=== PATIENT | female | born 1980 | race Two or more races ===

== ENCOUNTER 2025-01-14 16:23 | Emergency (ER) | payer MEDICAID, SELFPAY ==
[2025-01-14 16:25] VITALS: PULSE 83; RESP 18; O2SAT 98; BMI 27.4
--- NOTE | 2025-01-14 16:45 | PD.EDSYNC ---
ED Syncope RME/HPI General Chief Complaint: Syncope / Near Syncope Stated Complaint: SYNCOPE Time Seen by Provider: 01/14/25 16:45 Arrival date/time: 01/14/25 16:23 RME / HPI RME / HPI narrative: 44-year-old female patient was brought in by EMS for evaluation regarding mild heat exhaustion. Patient's been walking understand for the last 2 hours, call law enforcement and was found to be diaphoretic, and dizzy. Patient sat at the back of the police car, when the EMS arrived. Patient denies any headache denies any vomiting denies any other complaints. Related Data Allergies Allergy/AdvReac Type Severity Reaction Status Date / Time CODEINE AdvReac Severe Hives Uncoded 01/14/25 16:33 Review of Systems Review of Systems Narrative Review of Systems: Review of system reviewed and within normal limits except mentioned in HPI ED Exam Narrative Physical exam: VITAL SIGNS: Reviewed. GENERAL APPEARANCE: Alert and interactive, follows commands, no acute distress, HEAD AND FACE: Non-traumatic. ENT: PERRL, pink conjunctivitis, eyelid no trauma, Mucous membrane moist. NECK: Supple, nontender, no nuchal rigidity. CHEST: No tenderness, no crepitus, no paradoxical movement, no retractions. LUNGS: Clear, well ventilated, symmetric, no rales, no wheezing, no ronchi, no stridor, good breath sounds bilaterally. HEART: Regular rate, regular rhythm, no murmur, no gallops. ABDOMEN: Soft, positive bowel sounds, nondistended, no guarding, nontender, no rebound, no masses, RECTAL: Deferred. GENITAL: Deferred. NEUROLOGICAL: Gross motor function intact sensory function intact, Appropriate for age. MUSCULOSKELETAL: low back nontender, full range of motion. EXTREMITIES: Nontender, full range of motion. SKIN: Color pink, dry, no rash, no lacerations, no abrasions, no contusions. LYMPHATICS: Deferred. Course Quality Measures none Syncope MDM Narrative MDM Narrative:: 44-year-old female patient was brought in by EMS for evaluation regarding mild heat exhaustion. Patient's been walking understand for the last 2 hours, call law enforcement and was found to be diaphoretic, and dizzy. Patient sat at the back of the police car, when the EMS arrived. Patient denies any headache denies any vomiting denies any other complaints. Imaging or workup is noted at this time. Patient refused IV fluids. Patient is just asking for jug of ice water and sandwich. Patient is tolerating well. No vomiting. Patient vitals are normal. Patient will be discharged home. Patient data External records reviewed:: None Clinical information provided by:: patient Social determinants that could affect healthcare access:: none Patient has the following chronic illnesses:: None How is presenting disease/condition affected by chronic disease/condition?: no chronic disease Evaluation data The following diagnostics were reviewed and interpreted by me:: other (specify) Lab and/or radiology exams considered but not ordered:: None Interpretation Summary: None Medications / Prescriptions Medications or Prescriptions considered but not ordered:: None Medication administrations:: None Consultations Consultation(s) initiated? (list below): No Diagnosis Syncope Differential Diagnosis: vasovagal syncope Most likely diagnosis given after review of the tests above:: None Admission Indicated Admission indicated?: not indicated Admission Request Was there a request for admission?: No Disposition Plan Disposition Plan: Discharge Discharge Attestation Discharge Attestation: The patient WAS given an opportunity to ask questions and understood the discharge instructions. Discharge instructions specifically effects, indications for sooner follow up or return to the emergency department, and the expected course of current diagnosis. Patient condition: Stable Discharge Plan Plan Patient Disposition: HOME (Self Care) Discharge Disposition comment: Stable Problem List Clinical Impression: Dehydration Patient/Caregiver Discharge Instructions Discharge Activity: activity as tolerated Education Materials: Dehydration Additional Instructions: Thank you for the opportunity for serving you today. You are stable for discharged . You are advised to: Follow-up with your PCP in 1 to 2 days Return to ED for worsening of symptoms Increase oral fluids Print Language: Cape Verdean Stand Alone Forms: [employer] Award Info., Patient Portal Info Letter MAURICIO/ROSHNI Supervising Physician ILLO Supervising Physician: mD Eunice
[2025-01-14 17:06] VITALS: BP 129/88; PULSE 86; RESP 16; TEMP 37.2; O2SAT 96
== END 2025-01-14 19:05 | disposition home or self-care (01) ==
PROVIDERS: Emergency Provider Emergency Medicine
DX: E86.0 Dehydration (principal)
CPT/HCPCS: 99281

== ENCOUNTER 2025-01-18 17:37 | Emergency (ER) | payer MEDICAID, SELFPAY ==
[2025-01-18 17:47] VITALS: BP 91/62; PULSE 88; RESP 18; TEMP 36.6; O2SAT 98; BMI 27.4
--- NOTE | 2025-01-18 18:37 | XR_ITS ---
Examination: Abdomen sonogram, Limited Date and time of exam: January 18, 2025 1708 hours INDICATIONS: Right lower abdominal pain and nausea beginning 2 weeks ago Technique: Real-time ramos scale transabdominal sonographic images of the upper abdomen obtained. Findings: Normal gallbladder Normal common bile duct 0.4 cm Pancreatic head 1.9 cm Hepatomegaly 17.6 cm fatty infiltration Normal hepatopedal portal venous flow Patent IVC IMPRESSION: Normal gallbladder Moderate hepatomegaly fatty infiltration throughout the liver
--- NOTE | 2025-01-18 18:37 | XR_ITS ---
Examination: CT abdomen with intravenous contrast CT pelvis with intravenous contrast 2-D coronal reconstructions 2-D sagittal reconstructions Date and time of exam:January 18, 20252038 hours INDICATIONS: Patient fell today with injury to the abdomen, abdominal pain and vomiting. CTDI: vol (mGy) 9.49 DLP: (mGycm) 517 Technique: Multiple axial sections of the abdomen and pelvis have been obtained. 64 slice high-resolution scanner used. 3 mm axial sections have been obtained, post intravenous injection of Isovue 370. 2-D sagittal, coronal reconstructions obtained. Low dose protocols were performed. One or more of the following dose reduction techniques were used; automated exposure control, adjustment of the mA and/or KV according to patient size, use of iterative reconstruction technique. Findings: 3 mm pulmonary nodule right middle lobe No focal liver or splenic or renal laceration, no perinephric hematoma No gallstones No pancreatic or adrenal mass Abdominal aorta intact, no free blood in the abdomen Normal appendix Minimally fluid distended small bowel loops No pelvic mass Urinary bladder is intact Advanced disc narrowing L5-S1 Lumbar vertebral bodies hips bones of the pelvis is intact Suspicious for 3.4 cm posterior pelvic cyst Impression: 3 mm pulmonary nodule right middle lobe, recommend PA lateral chest follow-up No abdominal parenchymal laceration Normal appendix Mild small bowel ileus Abdominal aorta intact, no free blood in the abdomen or pelvis. Recommend pelvic sonography to confirm 3 cm posterior pelvic cyst
--- NOTE | 2025-01-18 18:39 | EDRME_ITS ---
Rapid Medical Screening Exam [facility] Arrival date/time: 01/18/25 17:37 45F with history of drug/alcohol use presents to ED with 1 week of ab pain and N/V, as well as near syncope. Patient was here several days ago but refused blood draw. But today, she is okay with it. Chief Complaint: Abdominal Pain Vital signs: Vital Signs Temperature 97.9 F 01/18/25 17:47 Pulse Rate 88 01/18/25 17:47 Respiratory Rate 18 01/18/25 17:47 Blood Pressure 91/62 01/18/25 17:47 Pulse Oximetry (%) 98 01/18/25 17:47 Oxygen Delivery Method Room Air 01/18/25 17:47
--- NOTE | 2025-01-18 18:40 | XR_ITS ---
Examination: CT brain head without contrast. 2-D sagittal coronal reconstructions Date and time of exam:January 18, 2025 1703 hours INDICATIONS: Dizziness headache after falling one week ago CTDI: vol (mGy):46.8 DLP: (mGycm):949 Technique: Multiple CT axial sections of the brain have been obtained, 5 mm slice thickness. Contrast has not been administered. 2-D sagittal, coronal reconstructions have been obtained Low dose protocols were performed. One or more of the following dose reduction techniques were used; automated exposure control, adjustment of the mA and/or KV according to patient size, use of iterative reconstruction technique. Findings: No significant ventricular enlargement. Intra-axial or extra-axial hemorrhage density is not seen. No mass effect or midline shift Basal cisterns are not remarkable. Fourth ventricle is midline. Cranial vault intact. Impression: Negative for acute hemorrhage, mass effect or midline shift
--- NOTE | 2025-01-18 18:40 | EKG_ITS ---
[facility] Test Date: 2025-01-18 Pat Name: CHIOMA MOJICA Department: Room: - Gender: Female Signalman: : 1980 Requested By: Ervin Garland Order Number: [id number] Reading MD: Ervin Garland Measurements Intervals [place] Rate: 76 P: 64 AL: 126 QRS: 53 QRSD: 84 T: 45 QT: 348 QTc: 392 Interpretive Statements SINUS RHYTHM MODERATE T-WAVE ABNORMALITY, CONSIDER ANTEROLATERAL ISCHEMIA [-0.1+ mV T-WAVE IN V3-V6] No previous ECG available for comparison /store/S0/[id number]/[id number].pdf
[2025-01-18 19:05] LABS: Basophils # (Auto) 0.0 Thou/mm3 (0.0-0.2); Basophils % (Auto) 0 % (0-2.5); Eosinophils # (Auto) 0.1 Thou/mm3 (0.0-0.5); Eosinophils % (Auto) 1 % (0-10); Hematocrit 44.7 % (36.0-46.0); Hemoglobin 15.1 g/dL (12.0-16.0); Immature Granulocytes Auto 0.03 Thou/mm3 (0.00-0.00); Lactate (Lactic Acid) 1.1 mMol/L (0.4-2.0); Lymphocytes # (Auto) 0.5 Thou/mm3 (1.0-4.8); Lymphocytes % (Auto) 5 % (10-50); Mean Corpuscular HGB Conc 33.8 g/dl (31.0-37.0); Mean Corpuscular Hemoglobin 31.1 pg (25.0-35.0); Mean Corpuscular Volume 92 fL (80-100); Monocytes # (Auto) 0.3 Thou/mm3 (0.0-0.8); Monocytes % (Auto) 3 % (0-12); Neutrophils # (Auto) 9.5 Thou/mm3 (1.8-7.7); Neutrophils % (Auto) 91 % (37-80); Nucleated Red Blood Cell # 0.00 Thou/mm3 (0.00-0.00); Nucleated Red Blood Cell % 0 /100 WBC (0); Platelet Count 178 Thou/mm3 (140-440); RDW Standard Deviation 43.1 fL (36.4-46.3); Red Blood Count 4.85 Miln/mm3 (4.00-5.20); White Blood Count 10.4 Thou/mm3 (3.6-11.0)
[2025-01-18 19:34] LABS: Alanine Aminotransferase 18 U/L (10-49); Albumin, Serum 4.2 gm/dL (3.5-5.0); Albumin/Globulin Ratio 1.6 (1.2-2.2); Alcohol, Blood Medical < 10.0 mg/dL (0-10.0); Alkaline Phosphatase 62 U/L (46-116); Anion Gap 6 (7-16); Aspartate Amino Transferase 23 U/L (0-34); BUN/Creatinine Ratio 13 Ratio (12-20); Bilirubin,Total 1.2 mg/dL (0.3-1.2); Blood Urea Nitrogen 9 mg/dL (9-23); Calcium 8.7 mg/dL (8.3-10.6); Calcium (Corrected) 8.7 mg/dL (8.5-10.1); Carbon Dioxide 23.7 mMol/L (20.0-31.0); Chloride 108 mMol/L (98-107); Creatinine (Component) 0.7 mg/dL (0.6-1.3); Estimated Creatinine Clearance 106.4 mL/min (>60); Globulin 2.6 gm/dL (2.3-3.5); Glucose 111 mg/dL (74-106); Lipase 28 U/L (12-53); Osmolality,Calculated 275 (275-295); Potassium 4.2 mMol/L (3.4-5.1); Sodium 138 mMol/L (136-145); Thyroid Stimulating Hormone 0.49 uIU/mL (0.55-4.78); Total Protein 6.8 gm/dL (5.7-8.2); eGFR > 60 See Note
[2025-01-18] MEDS: RINGERS LACTATED 1000 ML 1,000 ML 999 ML IV (20:07)
[2025-01-18] MEDS: ONDANSETRON INJ 2 MG/ML INJ 2 ML 4 MG IV (20:07)
[2025-01-18 22:37] LABS: Collection Type, Urine Clean Catch; RBC,Urine 0 /hpf (0-3); WBC,Urine 0 /hpf (0-5)
[2025-01-18 22:47] VITALS: BP 112/77; PULSE 95; RESP 18; TEMP 37.6; O2SAT 96
[2025-01-18 22:57] LABS: Bilirubin,Urine Negative (Negative); Blood,Urine Negative (Negative); Clarity,Urine Clear (Clear/Hazy); Color,Urine Lt-Yellow (Lt Yel-Yel); Culture Indicated,Urine Not Indicated; Glucose, Urine Negative (Negative); Ketones,Urine 1+ (Negative); Leukocyte Esterase,Urine Negative (Negative); Nitrite,Urine Negative (Negative); PH,Urine 6.5 (5.0-7.0); Protein,Urine Negative (Neg - Trace); Squamous Epithelial Cell,Urine 8 /hpf (0-5); Urobilinogen,Urine Negative mg/dL (0.0-1.0)
[2025-01-18 22:58] LABS: Specific Gravity,Urine > 1.035 (1.001-1.035)
[2025-01-18 22:59] LABS: HCG Qualitative,Urine Negative
[2025-01-18 23:05] LABS: Procalcitonin 0.07 ng/ml (0.0-0.49); Troponin I < 0.002 ng/mL (0.0-0.045)
[2025-01-19 00:32] LABS: Amphetamine/Methamp Scrn,U Positive (Negative); Barbiturate Screen,Urine Negative (Negative); Benzodiazepines Screen,Urine Negative (Negative); Benzoylecgonine Screen, Ur Negative (Negative); Fentanyl Screen,Urine Negative (Negative); Opiate Screen,Urine Negative (Negative); THC Screen,Urine Positive (Negative)
--- NOTE | 2025-01-19 02:23 | PD.EDABDPN ---
ED Abdominal Pain RME/HPI General Chief Complaint: Abdominal Pain Stated complaint: ABD PAIN, N/V, LIGHTHEADED Arrival date/time: 01/18/25 17:37 Source: patient Mode of arrival: ambulatory Limitations: no limitations RME / HPI RME / HPI narrative: 01/18/25 17:37 45F with history of drug/alcohol use presents to ED with 1 week of ab pain and N/V, as well as near syncope. Patient was here several days ago but refused blood draw. But today, she is okay with it. ------- Dr. Moralez's Main ED Evaluation: 45-year-old female presenting to the emergency department with intermittent 1 week episode of nausea and vomiting associate with some crampy abdominal pain. The patient states that she came to the emergency department a few days ago but did not want to get labs drawn. She returns today with increasing nausea and vomiting. Patient fell sick and she felt like she was going to pass out but she did not pass out. Related Data Allergies Allergy/AdvReac Type Severity Reaction Status Date / Time CODEINE AdvReac Severe Hives Uncoded 01/14/25 16:33 Review of Systems Review of Systems Systems Reviewed: All systems reviewed, normal except as documented Past Medical History Past Medical History CARDIAC: Negative Cardiac Disorders or Congestive Heart Failure RESPIRATORY: Negative Chronic Obstructive Pulmonary Disease (COPD) or Asthma GENITOURINARY: Negative Renal Disease ENDOCRINE: Negative Diabetes Mellitus Type 1 or Diabetes Mellitus Type 2 HEMATOLOGIC: Negative Sickle Cell Disease Family History FAMILY HISTORY: Negative Family Psychiatric Problems, Family Respiratory Disorders, Family Cardiac Disorders or Family Gastrointestinal Problems Social History SMOKING STATUS: Never smoker ED Exam General Limitations: Present no limitations General appearance: Present alert and in no apparent distress Head Head exam: Present atraumatic Eye Eye exam: Present normal appearance, PERRL and EOMI ENT ENT exam: Present normal exam, normal oropharynx and mucous membranes moist Neck Neck exam: Present normal inspection, full ROM and trachea midline Chest Chest inspection: Present normal inspection and symmetric chest wall rise Respiratory Respiratory exam: Present normal lung sounds bilaterally Cardiovascular Cardiovascular exam: Present regular rate, normal rhythm and normal heart sounds Abdominal Exam Abdominal exam: Present soft and normal bowel sounds Extremities Exam Extremities exam: Present normal inspection and full ROM Back Exam Back exam: Present normal inspection and full ROM Neurological Exam Neurological exam: Present alert, oriented X3 and CN II-XII intact Psychiatric Psychiatric exam: Present normal affect and normal mood Skin Skin exam: Present warm, dry, intact and normal color Course Quality Measures none Orders Category Date Time Status CT Screening NOW Care 01/18/25 18:38 Active EKG (ED ONLY) *Do not use* NOW Care 01/18/25 18:40 Completed Insert IV NOW Care 01/18/25 18:[address] abdomen pelvis w con Stat Exams 01/18/25 18:[address] head/brain wo con Stat Exams 01/18/25 18:40 Completed EKG (ED Only) Stat Exams 01/18/25 18:40 Draft US gall bladder Stat Exams 01/18/25 18:37 Completed Alcohol, Blood Medical Stat Lab 01/18/25 18:55 Completed CBC Stat Lab 01/18/25 18:55 Completed CMP [Comprehensive Metabolic Panel] Stat Lab 01/18/25 18:55 Completed Drug Screen,Urine Stat Lab 01/18/25 22:05 Completed HCG Qualitative,Urine Stat Lab 01/18/25 22:05 Completed Lactate (Lactic Acid) Stat Lab 01/18/25 18:55 Completed Lipase Stat Lab 01/18/25 18:55 Completed Procalcitonin Stat Lab 01/18/25 18:55 Completed TSH [Thyroid Stimulating Hormone] Stat Lab 01/18/25 18:55 Completed Troponin I Stat Lab 01/18/25 18:55 Completed Urinalysis, C/S if Indicated Stat Lab 01/18/25 22:05 Completed Ondansetron Inj [Zofran Inj] Med 01/18/25 18:38 Discontinued 4 mg IV X1 ONE Ringers Lactated 1000 ml [Lactated Ringers] 1,000 ml Med 01/18/25 18:38 Discontinued IV 999 mls/hr Vital Signs Vital signs: Vital Signs Temperature 97.9 F 01/18/25 17:47 Pulse Rate 88 01/18/25 17:47 Respiratory Rate 18 01/18/25 17:47 Blood Pressure 91/62 01/18/25 17:47 Pulse Oximetry (%) 98 01/18/25 17:47 Oxygen Delivery Method Room Air 01/18/25 17:47 Abdominal Pain MDM MDM Narrative MDM Narrative:: Patient presents with abdominal pain. While emergency department patient had labs drawn. White count was reviewed and interpreted by me. It is normal at 10. H&H is stable at 15/44. Platelets count is 178 and normal. The patient otherwise does not have significant electrolyte abnormality and glucose is 111. Lactic is normal at 1.1 and otherwise normal LFTs. No evidence of pancreatitis. Patient is dehydrated and this is consistent with her specific gravity of 1.035. Patient is positive for methamphetamine and marijuana Patient data External records reviewed:: [facility] previous records (Per chart review, patient was seen here on 01/14/25 for dehydration.) Clinical information provided by:: patient Social determinants that could affect healthcare access:: none Patient has the following chronic illnesses:: none How is presenting disease/condition affected by chronic disease/condition?: no chronic disease Evaluation data The following diagnostics were reviewed and interpreted by me:: lab results and radiology exam(s) Lab and/or radiology exams considered but not ordered:: none Interpretation Summary: CBC normal, CMP normal, Troponin normal, Lipase normal, Lactic Acid normal, Procalcitonin normal, UA unremarkable, HCG negative, UDS positive for methamphetamines and marijuana, Blood Alcohol negative. EKG done at 1842, NSR, rate of 76, normal intervals, normal axis, no ST elevations or depressions, according to my interpretation. [facility] Report Signed Patient: CHIOMA MOJICA Record#: [id number] Birthdate: 1980 Age/Sex: 45 / F Location: [facility] Attending Dr: Ordering Physician: Ervin Garland PA-C Date of Service: 01/18/25 Procedure(s): US gall bladder Accession Number(s): [id number] cc: Aureliano Camacho MD; Noel Goldstein MD; Ervin Garland PA-C~ Examination: Abdomen sonogram, Limited Date and time of exam: January 18, 2025 1708 hours INDICATIONS: Right lower abdominal pain and nausea beginning 2 weeks ago Technique: Real-time ramos scale transabdominal sonographic images of the upper abdomen obtained. Findings: Normal gallbladder Normal common bile duct 0.4 cm Pancreatic head 1.9 cm Hepatomegaly 17.6 cm fatty infiltration Normal hepatopedal portal venous flow Patent IVC IMPRESSION: Normal gallbladder Moderate hepatomegaly fatty infiltration throughout the liver Dictated By: Noel Goldstein MD Signed By: <Electronically signed by Noel Goldstein MD in OV> 01/18/25 1933 [facility] Report Signed Patient: CHIOMA MOJICA [facility]. Record#: [id number] Birthdate: 1980 Age/Sex: 45 / F Location: [facility] Attending Dr: Ordering Physician: Ervin Garland PA-C Date of Service: 01/18/25 Procedure(s): CT head/brain wo con Accession Number(s): [id number] cc: Aureliano Camacho MD; Noel Goldstein MD; Ervin Garland PA-C~ Examination: CT brain head without contrast. 2-D sagittal coronal reconstructions Date and time of exam:January 18, 2025 1703 hours INDICATIONS: Dizziness headache after falling one week ago CTDI: vol (mGy):46.8 DLP: (mGycm):949 Technique: Multiple CT axial sections of the brain have been obtained, 5 mm slice thickness. Contrast has not been administered. 2-D sagittal, coronal reconstructions have been obtained Low dose protocols were performed. One or more of the following dose reduction techniques were used; automated exposure control, adjustment of the mA and/or KV according to patient size, use of iterative reconstruction technique. Findings: No significant ventricular enlargement. Intra-axial or extra-axial hemorrhage density is not seen. No mass effect or midline shift Basal cisterns are not remarkable. Fourth ventricle is midline. Cranial vault intact. Impression: Negative for acute hemorrhage, mass effect or midline shift Dictated By: Noel Goldstein MD Signed By: <Electronically signed by Noel Goldstein MD in OV> 01/18/25 1926 [facility] Report Signed Patient: CHIOMA MOJICA [facility]. Record#: [id number] Birthdate: 1980 Age/Sex: 45 / F Location: [facility] Attending Dr: Ordering Physician: Ervin Garland PA-C Date of Service: 01/18/25 Procedure(s): CT abdomen pelvis w con Accession Number(s): [id number] cc: Aureliano Camacho MD; Noel Goldstein MD; Ervin Garland PA-C~ Examination: CT abdomen with intravenous contrast CT pelvis with intravenous contrast 2-D coronal reconstructions 2-D sagittal reconstructions Date and time of exam:January 18, 2025 2039 hours INDICATIONS: Patient fell today with injury to the abdomen, abdominal pain and vomiting. CTDI: vol (mGy) 9.49 DLP: (mGycm) 517 Technique: Multiple axial sections of the abdomen and pelvis have been obtained. 64 slice high-resolution scanner used. 3 mm axial sections have been obtained, post intravenous injection of Isovue 370. 2-D sagittal, coronal reconstructions obtained. Low dose protocols were performed. One or more of the following dose reduction techniques were used; automated exposure control, adjustment of the mA and/or KV according to patient size, use of iterative reconstruction technique. Findings: 3 mm pulmonary nodule right middle lobe No focal liver or splenic or renal laceration, no perinephric hematoma No gallstones No pancreatic or adrenal mass Abdominal aorta intact, no free blood in the abdomen Normal appendix Minimally fluid distended small bowel loops No pelvic mass Urinary bladder is intact Advanced disc narrowing L5-S1 Lumbar vertebral bodies hips bones of the pelvis is intact Suspicious for 3.4 cm posterior pelvic cyst Impression: 3 mm pulmonary nodule right middle lobe, recommend PA lateral chest follow-up No abdominal parenchymal laceration Normal appendix Mild small bowel ileus Abdominal aorta intact, no free blood in the abdomen or pelvis. Recommend pelvic sonography to confirm 3 cm posterior pelvic cyst Dictated By: Noel Goldstein MD Signed By: <Electronically signed by Noel Goldstein MD in OV> 01/18/252108 Medications / Prescriptions Medications or Prescriptions considered but not ordered:: none Medication administrations:: Medication Administration History Discontinued Medications Lactated Ringer's (Lactated Ringers) 1,000 mls @ 999 mls/hr IV .Q1H1M ONE Stop: 01/18/25 19:38 Last Infusion: 01/18/25 21:18 Dose: Infused Documented By: Admin: 01/18/25 20:07 Dose: 999 mls/hr Documented By: INGA Ondansetron HCl (Ondansetron Inj 2 Mg/Ml Inj 2 Ml) 4 mg IV X1 ONE; Protocol Stop: 01/18/25 18:39 Last Admin: 01/18/25 20:07 Dose: 4 mg Documented By: INGA see above Consultations Consultation(s) initiated? (list below): No Diagnosis Differential diagnosis abdominal pain: acute appendicitis, diverticulitis, gastroenteritis, pancreatitis and other (cholelithiasis, cholecystitis) Most likely diagnosis given after review of the tests above:: see clinical impression below Admission Indicated Admission indicated?: not indicated Admission Request Was there a request for admission?: No Disposition Plan Disposition Plan: Discharge Discharge Attestation Discharge Attestation: The patient and all family members were given an opportunity to ask questions and understood the discharge instructions. Discharge instructions specifically effects, indications for sooner follow up or return to the emergency department, and the expected course of current diagnosis. Patient condition: Stable Discharge Plan Plan Patient Disposition: HOME (Self Care) Patient condition on transfer: Stable Prescriptions/Referrals Referrals: Aureliano Camacho MD [Primary Care Provider] - In 1 week Problem List Clinical Impression: Dehydration, Abdominal pain Patient/Caregiver Discharge Instructions Education Materials: Dehydration, ED Drug Abuse, ED Pulmonary Nodule, Solitary Additional Instructions: Please stay hydrated with Pedialyte and or Gatorade. Avoid using drug use. Return to emergency department before your appointment with your primary care for any worsening symptoms, or any other concerns Today you were seen for abdominal pain. Your workup shows that you do not have a surgical emergency. Your CT scan shows that you may have a pelvic cyst. At this time you can follow-up with your primary care in the next 1 week so they can schedule an outpatient pelvic ultrasound. Incidentally they found a pulmonary nodule. This will need to be followed up by your primary care in the next 6 months. Failure to follow-up primary care can lead to a missed or delayed diagnosis. Print Language: Romansh Stand Alone Forms: [employer] Award Info., Patient Portal Info Letter
[2025-01-19 02:48] VITALS: BP 116/70; PULSE 98; RESP 16; TEMP 36.6; O2SAT 98
== END 2025-01-19 02:49 | disposition home or self-care (01) ==
PROVIDERS: Physician Assistant; Emergency Provider Emergency Medicine; PCP Family Medicine
DX: E86.0 Dehydration (principal); K76.0 Fatty (change of) liver, not elsewhere classified; K56.7 Ileus, unspecified; R91.1 Solitary pulmonary nodule; R10.31 Right lower quadrant pain
CPT/HCPCS: 36415; 70450; 74177; 76705; 80053; 80307; 80320; 81001; 81025; 83605; 83690; 84145; 84443; 84484; 85025; 93005; 96361; 96374; 99285; A4649; J2405; J7120; Q9967; G0480